=== PATIENT | female | born 2000 | race Caucasian/White ===

== ENCOUNTER 2025-09-27 02:01 | Emergency (ER) | payer OTHER, MEDICAID ==
[~2025-09-27] VITALS: Ht 162.6 cm; Wt 86.5 kg
[2025-09-27 02:03] VITALS: BP 146/121; PULSE 64; RESP 18; TEMP 96.8; O2SAT 100
--- NOTE | 2025-09-27 02:43 | ED.PDOC ---
History of Present Illness HPI Comments 25-year-old, obese female presents with c/c of nonradiating, RUQ abdominal pain, nausea, vomiting, and diarrhea. Patient reports on ongoing symptoms following initial onset, yesterday. No endorsed provoking or modifying factors. Vomitus is stated to contain food chunks. Recent history of 4x weeks . No pertinent medical, surgical, social, or family history. Denial of any constipation, urinary problems, fever, chills, or further acute symptoms. 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 Pertinent RAW STOCK DRIER TENDER History Family History Family History: Unknown Social History Smoker: Non-Smoker Alcohol: Denies ETOH Use Drugs: Denies Drug Use Lives In: Home All Other Systems: Reviewed and Negative (Comprehensive review of systems are negative unless stated in HPI) Physical Exam General Appearance: No Apparent Distress, Obese HEENT: Normal ENT Inspection, Pharynx Normal, TMs Normal, Other (No scleral icterus) Neck: Full Range of Motion, Non-Tender, Normal, Normal Inspection Respiratory: Chest Non-Tender, Lungs Clear, No Accessory Muscle Use, No Respiratory Distress, Normal Breath Sounds Cardiovascular: No Edema, No JVD, No Murmur, No Gallop, Normal Peripheral Pulses, Regular Rate/Rhythm Breast Exam: Deferred Gastrointestinal: Epigastric (Tenderness), No Organomegaly, No Pulsatile Mass, Normal Bowel Sounds, RUQ (Tenderness), Soft, Tenderness (Epigastric and RUQ region) Genitalia: Deferred Pelvic: Deferred Rectal: Deferred Extremities: No calf tenderness, Normal capillary refill, Normal inspection, Normal range of motion, Non-tender, No pedal edema Musculoskeletal : Apperance: Normal Neurologic: Alert, emergency department II-XII nml as Tested, No Motor Deficits, Normal Affect, Normal Mood, No Sensory Deficits Cerebellar Function: Normal Reflexes: Normal Skin: Dry, Normal Color, Warm, Other (No jaundice) Lymphatic: No Adenopathy Was a procedure done? Was a procedure done?: No Differential Dx Considerations may include: Gastritis, GERD, PUD, cholelithiasis, cholecystitis, viral, dehydration, electrolyte imbalance, among others X-Ray, Labs, Meds, VS Vital Signs Date Time Temp Pulse Resp B/P (MAP) Pulse Ox O2 Delivery O2 Flow Rate FiO2 09/27/25 02:03 96.8 64 18 146/121 100 96.8 Lab Test 09/27/25 02:43 Range/Units White Blood Count 17.5 H 4.4-10.8 10^3/uL Red Blood Count 5.31 H 4.0-5.20 10^6/uL Hemoglobin 12.4 12.2-16.2 g/dL Hematocrit 39.1 36.0-46.0 % Mean Corpuscular Volume 73.5 L 80.0-100.0 fL Mean Corpuscular Hemoglobin 23.4 L 28.0-32.0 pg Mean Corpuscular Hemoglobin Concent 31.8 L 32.0-36.0 g/dL Red Cell Distribution Width 16.6 H 11.8-14.3 % Platelet Count 370 140-450 10^3/uL Mean Platelet Volume 7.1 6.9-10.8 fL Neutrophils (%) (Auto) 84.2 H 37.0-80.0 % Lymphocytes (%) (Auto) 10.7 10.0-50.0 % Monocytes (%) (Auto) 4.5 0.0-12.0 % Eosinophils (%) (Auto) 0.3 0.0-7.0 % Basophils (%) (Auto) 0.3 0.0-2.0 % Neutrophils # (Auto) 14.7 H 1.6-8.6 10 ^3/uL Lymphocytes # (Auto) 1.9 0.4-5.4 10 ^3/uL Monocytes # (Auto) 0.8 0-1.3 10 ^3/uL Eosinophils # (Auto) 0.1 0-0.8 10 ^3/uL Basophils # (Auto) 0.1 0-0.2 10 ^3/uL Nucleated Red Blood Cells 0.0 % Sodium Level 143 136-145 mmol/L Potassium Level 4.0 3.5-5.1 mmol/L Chloride Level 105 98-107 mmol/L Carbon Dioxide Level 26 20-31 mmol/L Anion Gap 12 5-15 Blood Urea Nitrogen 8 L 9-23 mg/dL Creatinine 0.81 0.550-1.02 mg/dL Glomerular Filtration Rate Calc 104 >90 mL/min BUN/Creatinine Ratio 9.9 L 10.0-20.0 Serum Glucose 161 H 74-106 mg/dL Calcium Level 9.7 8.7-10.4 mg/dL Total Bilirubin 0.5 0.2-1.0 mg/dL Direct Bilirubin 0.2 <0.3 mg/dL Aspartate Amino Transferase (AST) 69 H 13-40 U/L Alanine Aminotransferase (ALT) 98 H 7-40 U/L Alkaline Phosphatase 151 H 46-116 U/L Total Protein 7.8 5.7-8.2 g/dL Albumin 4.7 3.2-4.8 g/dL Lipase 42 12-53 U/L Current Medications Medications (Trade) Dose Ordered Sig/Evelia Route Start Time Stop Time Status Last Admin Ondansetron HCl (Zofran) 4 mg ONCE ONCE IV 09/27/25 02:45 09/27/25 02:46 DC 09/27/25 03:45 Acetaminophen (Tylenol Tablet) 650 mg ONCE ONCE PO 09/27/25 02:45 09/27/25 02:46 DC 09/27/25 03:45 Time of 1ST Reevaluation: 03:00 Reevaluation 1ST: Unchanged Time of 2ND Reevaluation: 05:00 Reevaluation 2ND: eloped Patient Education/Counseling: Diagnosis, Treatment, Need For Follow Up Family Education/Counseling: No Family Present Comments Patient presents with right upper quadrant pain. Mac sign was positive. Her alkaline phosphatase and transaminase were elevated as well. Lipase is normal. She does have leukocytosis no fever. I do order Rocephin for her and then ultrasound however the patient had eloped. I called and left a voicemail for t he patient to return to complete her workup and treatment Additional Information Previous visits reviewed: n/a Labs ordered: Hepatic panel, BMP, CBC, lipase Images reviewed: Gallbladder ultrasound Additional historian is interviewed: n/a SEPSIS Sepsis Screen Date sepsis recognized/suspect: Sep 27, 2025 Time Sepsis recognized/suspect: 020 Recent Procedure: No On Antibiotic Therapy: No Respiratory Rate >20: No Heart Rate >90: No Temp<36 C (96.8 F) or >38.3 C: No SBP <90 or MAP <65 mmHG: No New Acute Mental Status Change: No Is the patient on CPAP, BIPAP,: No Vital Signs Date Time Temp Pulse Resp B/P (MAP) Pulse Ox O2 Delivery O2 Flow Rate FiO2 09/27/25 02:03 96.8 64 18 146/121 100 96.8 Laboratory Tests Test 09/27/25 02:43 White Blood Count 17.5 10^3/uL (4.4-10.8) H Medications Medications Dose Ordered Sig/Evelia Route Start Time Stop Time Status Last Admin Dose Admin Acetaminophen 650 mg ONCE ONCE PO 09/27/25 02:45 09/27/25 02:46 DC 09/27/25 03:45 Ondansetron HCl 4 mg ONCE ONCE IV 09/27/25 02:45 09/27/25 02:46 DC 09/27/25 03:45 Departure 1 Departure Time of Disposition: 05:02 Impression: Primary Impression: Biliary colic Additional Impressions: Elevated alkaline phosphatase level Transaminitis Leukocytosis Disposition: LEFT AWOL/ELOPED Condition: Other (Unknown) Critical Care Note Critical Care Time?: No Stability Stability form required: No Heart Score Heart Score: Heart Score Response (Comments) Value History N/A 0 EKG N/A 0 Age N/A 0 Risk Factors N/A 0 Troponin N/A 0 Total 0 I personally scribed for ALEXANDRO FARIA MD ([email or web address]) on 09/27/25 at 02:43. Electronically submitted by Valentino Arias ([email or web address]). ALEXANDRO FARIA MD Sep 27, 2025 02:43
[2025-09-27 03:14] LABS: Hematocrit 39.1 % (36.0-46.0); Hemoglobin 12.4 g/dL (12.2-16.2); Mean Corpuscular Hemoglobin 23.4 pg (28.0-32.0); Mean Corpuscular Volume 73.5 fL (80.0-100.0); Nucleated Red Blood Cells % 0.0 %
[2025-09-27 03:38] LABS: Albumin 4.7 g/dL (3.2-4.8); Anion Gap 12 (5-15); BUN/Creatinine Ratio 9.9 (10.0-20.0); Bilirubin, Direct 0.2 mg/dL (<0.3); Bilirubin, Total 0.5 mg/dL (0.2-1.0); Calcium 9.7 mg/dL (8.7-10.4); Carbon Dioxide 26 mmol/L (20-31); Chloride 105 mmol/L (98-107); Potassium 4.0 mmol/L (3.5-5.1); Sodium 143 mmol/L (136-145); Total Protein 7.8 g/dL (5.7-8.2)
[2025-09-27 03:44] LABS: Alanine Aminotransferase 98 U/L (7-40); Alkaline Phosphatase 151 U/L (46-116); Blood Urea Nitrogen 8 mg/dL (9-23); Glucose 161 mg/dL (74-106)
[2025-09-27] MEDS: ACETAMINOPHEN 325 MG TAB PO ONE (03:45)
[2025-09-27] MEDS: ONDANSETRON HCL 4 MG/2 ML VIAL IV ONE (03:45)
[2025-09-27 04:38] LABS: Lipase 42 U/L (12-53)
== END 2025-09-27 04:32 | disposition left against medical advice (07) ==
LOC: ER 02:01
DX: K80.50 Calculus of bile duct without cholangitis or cholecystitis without obstruction (principal); D72.829 Elevated white blood cell count, unspecified; R74.01 Elevation of levels of liver transaminase levels; R74.8 Abnormal levels of other serum enzymes
CPT/HCPCS: 36415; 80048; 80076; 83690; 85025; 96374; 99283; J2405